=== PATIENT | female | born 1990 | race Caucasian/White ===

== ENCOUNTER 2020-12-08 15:38 | Emergency (ER) | payer SELFPAY ==
--- OUTSIDE RECORDS SUMMARY | 2020-12-08 15:41 | XMS REPORT | Continuity of Care Document ---
:1990 Author Organization [facility] t Address [address] [place] [address] Dr. Suarez [address] [place] [id number] Care Team Providers Name Role Phone Unavailable Unavailable Unavailable Problems This patient has no known problems. Allergies, Adverse Reactions, Alerts This patient has no known allergies or adverse reactions. Medications This patient has no known medications. Procedures This patient has no known procedures. Results This patient has no known results.
--- NOTE | 2020-12-08 15:56 | ER ---
Nurse's Notes [facility] Name: Jessica Lamar Age: 30 yrs Sex: Female : 1990 Arrival Date: 12/08/2020 Time: 15:40 Bed Waiting Private MD: Diagnosis: Presentation: 12/08 15:48 Chief complaint: Patient states: loss of smell and taste, "this nasty stuff coming out sv of my throat" started 11/30/20. Coronavirus screen: Client denies travel out of the [place] in the last 14 days. Client presents with at least one sign or symptom that may indicate coronavirus-19. Ebola Screen: No symptoms or risks identified at this time. Risk Assessment: Do you want to hurt yourself or someone else? Patient reports no desire to harm self or others. Onset of symptoms was November 30, 2020. 15:48 Method Of Arrival: Ambulatory sv 15:48 Acuity: ROHIT 4 sv 15:50 Initial Sepsis Screen: Does the patient meet any 2 criteria? No. Patient's initial sv sepsis screen is negative. Does the patient have a suspected source of infection? No. Patient's initial sepsis screen is negative. Triage Assessment: 15:51 General: Appears in no apparent distress. uncomfortable, Behavior is calm, cooperative, sv appropriate for age. Neuro: Level of Consciousness is awake, alert, obeys commands, Gait is steady. Respiratory: Respiratory effort is even, unlabored. Historical: - Allergies: 15:49 No Known Allergies; sv - PMHx: 15:49 None; sv - Immunization history:: Client reports having NOT received the Covid vaccine. - Social history:: Smoking status: Patient reports the use of cigarette tobacco products, denies chronic smoking, but will smoke occasionally. Assessment: 15:55 Reassessment: Pt stated that she's not staying here in the ER, she is leaving. She only sv wants her test results. Pt informed that if she leaves we will have to take her out of the computer system. Pt stated that she's leaving. Vital Signs: 15:50 BP 111 / 81; Pulse 70; Resp 18; Temp 97; Pulse Ox 100% ; Weight 104.33 kg; Height 5 ft. sv 6 in. (167.64 cm); 15:50 Body Mass Index 37.12 (104.33 kg, 167.64 cm) sv ED Course: 15:40 Patient arrived in ED. ds1 15:48 Arm band placed on. sv 15:49 Triage completed. sv Administered Medications: No medications were administered Outcome: 15:56 Patient left the ED. sv Signatures: Maggie Gomez RN RN sv Deya Eagle ds1 Corrections: (The following items were deleted from the chart) 15:52 15:50 Pulse 70bpm; Resp 18bpm; Pulse Ox 100%; Temp 97F; 104.33 kg; Height 5 ft. 6 in.; sv BMI: 37.1; sv
[2020-12-08 16:00] VITALS: BP 111/81; TEMP 97; O2SAT 100
== END 2020-12-08 15:56 | disposition left against medical advice (07) ==
LOC: ER 15:38
DX: Z53.21 Procedure and treatment not carried out due to patient leaving prior to being seen by health care provider (principal)
CPT/HCPCS: 99281; U0003

== ENCOUNTER 2021-11-14 18:07 | Emergency (ER) | payer BC, OTHER ==
--- OUTSIDE RECORDS SUMMARY | 2021-11-14 18:09 | XMS REPORT | Continuity of Care Document ---
:1990 Author Organization [facility] t Address [address] [place] [address] Care Team Providers Name Role Phone Pob1, Acute Care Clinic Attending Clinician Unavailable Sy Skinner Attending Clinician SY ACUÑA Attending Clinician Unavailable Doctor Unassigned, [place] Attending Clinician Unavailable Problems Condition Condition Condition Status Onset Resolution Last Treating Co mments Source Name Details Category Date Date Treatment Clinician Date No known No known Disease Unive rs active active ity of problems problems [facility] Allergies, Adverse Reactions, Alerts Allergy Allergy Status Severity Reaction(s) Onset Inactive Treating Comm ents Source Name Type Date Date Clinician NO KNOWN Drug Active Univers ALLERGIE Class ity of S [facility] Social History Social Habit Start Date Stop Date Quantity Comments Source Sex Assigned At Uni [facility] to SARS-CoV-2 [facility] sure [facility] Smoking Status Start Date Stop Date Source Unknown if ever smoked Universit y [facility] Current every day smoker 2019-10-30 00:00:00 Uni [facility] Medications Ordered Filled Start Stop Current Ordering Indication Dosage Frequency Signature Comments Components Source Medication Medication Date Date Medication? Clinician (SIG) Name Name No known No Univers medications [facility] Vital Signs Vital Name Observation Time Observation Value Comments Source Systolic blood 2019-10-30 15:11:00 117 mm[Hg] Univer sity of pressure [facility] Diastolic blood 2019-10-30 15:11:00 66 mm[Hg] Unive rsity of pressure [facility] Heart rate 2019-10-30 15:11:00 83 /min Universi ty [facility] Body temperature 2019-10-30 15:11:00 36.89 [facility] Respiratory rate 2019-10-30 15:11:00 18 /min [facility] Body height 2019-10-30 15:11:00 165.1 cm [facility] Body weight 2019-10-30 15:11:00 92.987 kg [facility] BMI 2019-10-30 15:11:00 34.11 kg/m2 [facility] Oxygen saturation in 2019-10-30 15:11:00 100 /min [facility] Arterial blood by [facility] Pulse oximetry [place] Procedures Procedure Date / Time Performed Performing Clinician Sourc e POCT GRP A STREP 2019-10-30 15:10:00 Ruddy Remy [facility] (MOLECULAR) [facility] Encounters Start End Encounter Admission Attending Care Care Encounter Source Date/Time Date/Time Type Type Clinicians Facility Department ID 2019-10-30 2019-10-30 Urgent Pob1, Acute Care Clinic [facility] [id number]. [id number] Univers 10:02:31 10:22:31 Sy Burrows [facility] [id number] ity [facility] [id number] [place] as Professio [phone] [facility] [address] 2019-10-30 2019-10-30 Outpatient Lissy [facility] [id number] Univers 10:00:00 10:00:00 SY ity [facility] 2019-10-30 2019-10-30 Letter Doctor MASTER [id number] Univers 00:00:00 00:00:00 (Out) Unassigned, MARLEN [id number] ity of [place] [facility] [id number] [place] as [phone] [address] Results Test Description Test Time Test Comments Results Result Comments Source POCT GRP A STREP (MOLECULAR) 2019-10-30 15:20:00 Test Item Value Reference Range Interpretation Comme nts POCT GP A STREP (test code = NEG Negative - Negative 71753-8) ISAAK (test code = ISAAK) accurate development and interpretation of all internal controls Lab Interpretation (test code = Normal 87636-7) [facility]
--- NOTE | 2021-11-14 20:56 | RAD REPORT ---
EXAM DESCRIPTION: RAD - Ankle Left 3 View - 11/14/2021 8:46 pm CLINICAL HISTORY: ankle injury COMPARISON: No comparisons FINDINGS: Mild lateral soft tissue swelling. Small calcaneal spurs. No acute fracture or dislocation .
--- NOTE | 2021-11-14 20:56 | RAD REPORT ---
EXAM DESCRIPTION: RAD - Chest Single View - 11/14/2021 8:46 pm CLINICAL HISTORY: fall injury Chest pain. COMPARISON: CHEST SINGLE VIEW dated 04/29/2010 FINDINGS: Portable technique limits examination quality. The lungs are grossly clear. The heart is normal in size. No displaced fractures. IMPRESSION: No acute intrathoracic process suspected.
[2021-11-15 03:18] VITALS: TEMP 98.2
[2021-11-15 03:20] VITALS: BP 121/77; O2SAT 97
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
== END 2021-11-14 21:17 | disposition home or self-care (01) ==
LOC: ER 18:07
DX: S40.812A Abrasion of left upper arm, initial encounter (principal); M25.572 Pain in left ankle and joints of left foot; F17.210 Nicotine dependence, cigarettes, uncomplicated
CPT/HCPCS: 71045; 99283